=== PATIENT | female | born 2000 | race Two or more races ===

== ENCOUNTER → 2024-07-28 | Outpatient (REF) | payer OTHER | LOC: M PLALAB 15:00 | PROVIDERS: ATTEND Nurse Practitioner Family | DX: Z36.89 Encounter for other specified antenatal screening (principal); Z3A.36 36 weeks gestation of pregnancy ==

== ENCOUNTER 2024-08-05 02:01 | Inpatient (IN) | payer OTHER ==
[~2024-08-05] VITALS: Ht 167.6 cm; Wt 107.7 kg
[2024-08-05] VITALS (24 sets, daily range): BP systolic 100–143; BP diastolic 54–94; O2SAT 97
[2024-08-05] MEDS ORDERED: PRENTAB9 PO (02:15)
[2024-08-05 03:03] LABS: HEMATOCRIT 33.2 % (36.0-47.0); HEMOGLOBIN 11.5 g/dl (12.0-15.5); MEAN CORPUSCULAR HGB CONC 34.6 g/dl (32.0-36.5); MEAN CORPUSCULAR VOLUME 83.8 fl (80.0-96.0); PLATELET COUNT, AUTOMATED 333 10^3/uL (150-450); RED BLOOD COUNT 3.96 10^6/uL (4.00-5.40); WHITE BLOOD COUNT 13.1 10^3/uL (4.0-10.0)
[2024-08-05] MEDS ORDERED: HOME MED LIST COMPLETE! XX SCH (03:15)
[2024-08-05] MEDS: LR 1,000 ML IV ONE (03:34)
[2024-08-05] MEDS ORDERED: EPIDURAL/PCA KEYS XX PRN (03:55)
[2024-08-05] MEDS ORDERED: LR 500 ML IV PRN (03:55)
[2024-08-05] MEDS ORDERED: diphenhydrAMINE 50MG/ML VIAL IV PRN (03:55)
[2024-08-05] MEDS ORDERED: ePHEDrine SULFATE 25 MG/5 ML(5MG/ML) SYRINGE IVP PRN (03:55)
[2024-08-05] MEDS ORDERED: NALOXONE INJ 0.4MG/1ML VIAL IV PRN (03:55)
[2024-08-05] MEDS: FENTANYL/ROPIVACAINE/NACL BAG 100 ML EPIDURAL SCH (03:58)
[2024-08-05] MEDS: ONDANSETRON 4MG 2ML VIAL IV PRN (04:51)
[2024-08-05] MEDS ORDERED: TRANEXAMIC ACID INJection 1,000 MG in NS 100 ML IV PRN (05:15)
[2024-08-05] MEDS ORDERED: LIDOCAINE 1% MDV 20ML VIAL INFIL PRN (05:15)
[2024-08-05] MEDS ORDERED: OXYTOCIN DRIP 30 UNITS in IV 1 EA IV PRN (05:15)
[2024-08-05] MEDS ORDERED: METHYLERGONOVINE MALEATE 0.2MG/ML 1ML VIAL IM PRN (05:15)
[2024-08-05] MEDS: LR 1,000 ML IV SCH (06:59)
[2024-08-05 08:07] LABS: HEPATITIS C VIRUS ABY INDEX < 0.02 INDEX (<0.8)
[2024-08-05] MEDS: PRENATAL VITAMINS CHEWABLE TABLET PO SCH (09:00)
[2024-08-05] MEDS ORDERED: RHOGAM 300MCG (1500IU) INJ IM SCH (13:30)
[2024-08-05] MEDS ORDERED: ACETAMINOPHEN 325 MG TAB PO PRN (13:30)
[2024-08-05] MEDS ORDERED: MOM 30ML SUSPENSION UDC PO PRN (13:30)
[2024-08-05] MEDS ORDERED: ANUSOL HC CREAM 30GM TOP PRN (13:30)
[2024-08-05] MEDS: IBUPROFEN 800 MG TAB PO PRN (13:51)
[2024-08-05] MEDS: DIBUCAINE 1% OINTMENT 30GM TOP PRN (13:51)
[2024-08-06] MEDS: ACETAMINOPHEN 500 MG TAB PO PRN (01:35)
[2024-08-06 06:00] VITALS: BP 127/58; O2SAT 99
[2024-08-06] MEDS: DOCUSATE SODIUM 100MG CAPSULE PO PRN (08:09)
[2024-08-06] MEDS: IBUPROFEN 600MG TAB PO PRN (08:09)
[2024-08-06 09:35] VITALS: BP 127/58; TEMP 97.8; O2SAT 99
[2024-08-06 18:00] VITALS: BP 135/74; O2SAT 98
[2024-08-07 05:22] VITALS: BP 119/69; O2SAT 98
[2024-08-07] MEDS ORDERED: MEASLES,MUMPS,RUBELLA VACCINE INJ (MMR-II) SC.IMMUN ONE (09:00)
[2024-08-07] MEDS ORDERED: ACET-683 PO (10:06)
[2024-08-07] MEDS ORDERED: IBUP80TA PO (10:06)
== END 2024-08-07 13:20 | disposition home or self-care (01) | DRG 560 ==
LOC: M LDO 02:01 → M LDI 02:34 → M OBS 12:40
PROVIDERS: ADMIT Obstetrics & Gynecology; ATTEND Advanced Practice Midwife
PROC: 10E0XZZ Delivery of Products of Conception, External Approach (ICD-10-PCS; principal; 2024-08-05)
PROC: 10907ZC Drainage of Amniotic Fluid, Therapeutic from Products of Conception, Via Natural or Artificial Opening (ICD-10-PCS; 2024-08-05)
PROC: 0HQ9XZZ Repair Perineum Skin, External Approach (ICD-10-PCS; 2024-08-05)
DX: O70.0 First degree perineal laceration during delivery (principal); Z37.0 Single live birth; Z3A.37 37 weeks gestation of pregnancy

== ENCOUNTER 2025-04-10 09:42 | Emergency (ER) | payer OTHER ==
[~2025-04-10] VITALS: Ht 165.1 cm; Wt 85.5 kg
[~2025-04-10 09:42] MED LIST: ACET-683 PO; IBUP80TA PO; PRENTAB9 PO
[2025-04-10 10:48] VITALS: BP 116/75; TEMP 97.6; O2SAT 98
[2025-04-10] MEDS: ACETAMINOPHEN 325 MG TAB PO ONE (11:18)
== END 2025-04-10 13:08 | disposition left against medical advice (07) ==
LOC: M ED 09:42
DX: J02.9 Acute pharyngitis, unspecified (principal); Z79.1 Long term (current) use of non-steroidal anti-inflammatories (NSAID); Z79.810 Long term (current) use of selective estrogen receptor modulators (SERMs); Z53.9 Procedure and treatment not carried out, unspecified reason

== ENCOUNTER → 2025-07-20 | Outpatient (CLI) | payer OTHER ==
[2025-07-20 17:27] LABS: PLATELET COUNT, AUTOMATED 364 10^3/uL (150-450)
[2025-07-20 17:53] LABS: HIV 1&2 SCREEN NEGATIVE (NEGATIVE)
[2025-07-20 18:01] LABS: HEPATITIS C VIRUS ABY INDEX < 0.02 INDEX (<0.8)
[2025-07-20 18:37] LABS: Trichomonas vaginalis (AMP) NOT DETECTED (NEGATIVE)
[2025-07-20 19:01] LABS: GC DNA AMPLIFICATION NEGATIVE (NEGATIVE)
== END ==
LOC: M PLALAB 15:11
PROVIDERS: ATTEND Advanced Practice Midwife
DX: Z34.81 Encounter for supervision of other normal pregnancy, first trimester (principal)